=== PATIENT | male | born 1980 | race Caucasian/White ===

== ENCOUNTER 2017-07-18 19:33 | Emergency (ER) | payer BC ==
[~2017-07-18] VITALS: Ht 182.9 cm; Wt 99.8 kg
[2017-07-18] MEDS ORDERED: PERCOCET 5-3251 EACH PO (19:55)
[2017-07-18] MEDS ORDERED: ZOFRAN ODT4 MG (19:56)
[2017-07-18] MEDS ORDERED: ZYRTEC10 M3 (19:57)
[2017-07-18] MEDS ORDERED: NAPROXEN500 MG PO (22:58)
[2017-07-18] MEDS ORDERED: IBUPROFEN600 MG PO (23:01)
== END 2017-07-18 23:14 | disposition home or self-care (01) ==
LOC: ED 19:33
DX: K58.9 Irritable bowel syndrome, unspecified (principal); R55 Syncope and collapse; K08.89 Other specified disorders of teeth and supporting structures; R74.0 Nonspecific elevation of levels of transaminase and lactic acid dehydrogenase [LDH]; Z88.8 Allergy status to other drugs, medicaments and biological substances
CPT/HCPCS: 74022; 80053; 81001; 83605; 83690; 85025; 96361; 96374; 96375; 99284; J1885; J2405; J7120